=== PATIENT | male | born 1980 | race Caucasian/White ===

== ENCOUNTER 2017-10-02 13:00 | Outpatient (RCR) | payer MEDICAID, SELFPAY | END 2017-10-02 23:59 | LOC: PT.CARL 13:00 | PROVIDERS: Referring Provider Nurse Practitioner Family; Visit Provider Nurse Practitioner Family | DX: M54.41 Lumbago with sciatica, right side (principal); G89.29 Other chronic pain | CPT/HCPCS: 97010; 97012; 97014; 97035; 97110; 97162; G0283 ==

== ENCOUNTER 2017-10-24 13:00 | Outpatient (RCR) | payer MEDICAID, SELFPAY | END 2017-10-24 17:05 | disposition home or self-care (01) | LOC: PT 13:00 | PROVIDERS: Visit Provider Nurse Practitioner Family | DX: M54.41 Lumbago with sciatica, right side (principal); G89.29 Other chronic pain | CPT/HCPCS: 97010; 97012; 97014; 97035; 97110; G0283 ==

== ENCOUNTER → 2021-02-23 13:49 | Outpatient (CLI) | payer OTHER, SELFPAY ==
[2021-02-23 14:01] LABS: Basophils % 0.4 % (0.1-2.0); Eosinophils # 0.3 K/mm3 (0.0-0.4); Eosinophils % 5.9 % (0.1-12.0); Hematocrit 40.1 % (42.0-52.0); Hemoglobin 13.8 g/dL (14.1-18.0); Lymphocytes # 0.9 K/mm3 (0.7-4.5); Lymphocytes % 20.3 % (10-50); Mean Corpuscular HGB Conc 34.3 g/dL (31.8-35.4); Mean Corpuscular Volume 75.8 fl (80-94); Mean Platelet Volume 8.7 fl (7.4-10.4); Monocytes # 0.4 K/mm3 (0.1-1.0); Monocytes % 8.1 % (1.7-9.3); Neutrophils % 65.4 % (37.0-80.0); Platelet Count 207 K/mm3 (142-424); Red Cell Distribution Width 12.9 % (11.5-17.5); White Blood Count 4.5 K/mm3 (4.8-10.8)
[2021-02-23 14:06] LABS: Chloride 103 mmol/L (98-107); Potassium 4.3 mmoL/L (3.5-5.1); Sodium 138 mmol/L (136-145)
[2021-02-23 14:09] LABS: Alanine Aminotransferase 29 U/L (12-78); Albumin Level 4.3 g/dl (3.5-5.0); Albumin/Globulin Ratio 1.6 (1.1-1.8); Alkaline Phosphatase 109 U/L (38-126); Anion Gap 13.3 mEq/L (5-15); Aspartate Amino Transferase 38 U/L (17-59); Bilirubin,Total 0.7 mg/dl (0.2-1.3); Blood Urea Nitrogen 10 mg/dl (9-20); Calcium 9.1 mg/dl (8.4-10.2); Carbon Dioxide 26 mmol/L (22.0-30.0); Cholesterol 127 mg/dl (140-200); Estimated Glomerular Filt Rate 124 ml/min (>60); GFR (African American) 150 ML/MIN (>60); Globulin 2.7 g/dL (1.3-3.2); Glucose 127 mg/dl (74-100); Triglycerides 63 mg/dl (30-150); VLDL Cholesterol 13 mg/dL (0-40)
[2021-02-23 14:10] LABS: Chol/HDL Ratio 2.6 (1-3.5); HDL Cholesterol 48 mg/dl (40-60)
[2021-02-23 14:21] LABS: Direct LDL Cholesterol 62.98 mg/dL (100-129)
[2021-02-23 14:40] LABS: Thyroid Stimulating Hormone < 0.02 uIU/mL (0.465-4.68)
[2021-02-23 20:42] LABS: T4 (Thyroxine) 18.6 ug/dl (5.53-11.0)
[2021-03-04 07:12] LABS: Testosterone, Total, LC/MS 585.3 ng/dL (264.0-916.0); Testosterone,Free 4.5 pg/mL (6.8-21.5)
== END ==
PROVIDERS: Visit Provider Nurse Practitioner Family
DX: N63.20 Unspecified lump in the left breast, unspecified quadrant (principal)
CPT/HCPCS: 80053; 80061; 84402; 84403; 84436; 84443; 85025

== ENCOUNTER → 2021-03-03 09:28 | Outpatient (CLI) | payer OTHER, SELFPAY ==
--- NOTE | 2021-03-03 09:32 | MM_ITS ---
PROCEDURE: MM DIG MAMM BI DX W/CAD Digital Breast Tomosynthesis Included Right breast ultrasound complete with axilla CLINICAL INDICATION: RT BREAST LUMP Any a thumbs occur COMPARISON: US US BREAST RT COMPLETE from 03/14/2021 TECHNIQUE: Standard images obtained along with spot compression views and tomosynthesis and right breast ultrasound. FINDINGS: No discrete mass. No malignant appearing mass or malignant-appearing microcalcification.. Initially MLO images demonstrate significant deodorant artifact in the axilla. The patient return for additional images without deodorant.. There is diffuse bilateral gynecomastia right greater than left. Right breast ultrasound: No discrete mass. No cyst or other abnormalities apparent. IMPRESSION: Diffuse bilateral gynecomastia right greater than left. No discrete mass. BI-RAD Category: 2 Benign Finding FOLLOW-UP: Follow-up as clinically warranted. If there is indeed a palpable abnormality then it should be managed on a clinical basis despite negative mammogram and negative ultrasound. (A letter has been sent to the patient regarding results of the study.) Dictated by: Navin Monterroso MD 04/01/2021 11:15 Navin Monterroso MD in [place] 04/01/2021 11:15
== END ==
PROVIDERS: PCP Nurse Practitioner Family; Visit Provider Nurse Practitioner Family
DX: N63.10 Unspecified lump in the right breast, unspecified quadrant (principal)
CPT/HCPCS: 77062; 77066; G0279

== ENCOUNTER → 2021-03-14 11:20 | Outpatient (CLI) | payer OTHER, SELFPAY ==
--- NOTE | 2021-03-14 11:20 | US_ITS ---
PROCEDURE: US BREAST RT COMPLETE CLINICAL INDICATION: abn mamm Palpable nodule right breast COMPARISON: MG MM DIG MAMM BI DX W/CAD from 03/03/2021 FINDINGS: No discrete mass. No cyst or solid nodule apparent. There is gynecomastia. IMPRESSION: No discrete nodule. Gynecomastia Dictated by: Navin Monterroso MD 04/06/2021 08:57 Navin Monterroso MD in [place] 04/06/2021 08:57
== END ==
PROVIDERS: PCP Nurse Practitioner Family; Visit Provider Nurse Practitioner Family
DX: R92.8 Other abnormal and inconclusive findings on diagnostic imaging of breast (principal)
CPT/HCPCS: 76641

== ENCOUNTER → 2021-03-21 13:51 | Outpatient (CLI) | payer OTHER, SELFPAY ==
[2021-03-21 14:34] LABS: Thyroid Stimulating Hormone < 0.02 uIU/mL (0.465-4.68)
[2021-03-21 15:07] LABS: Free T4 (Free Thyroxine) 3.37 ng/dl (0.78-2.19)
[2021-03-23 09:13] LABS: Thyroid Peroxidase Antibodies <9 IU/mL (0-34); Triiodothyronine (T3) Free 12.8 pg/mL (2.0-4.4); Triiodothyronine (T3) Total 371 ng/dL (71-180)
[2021-03-26 20:54] LABS: Triiodothyronine (T3) Reverse 40.6 ng/dL (9.2-24.1)
== END ==
PROVIDERS: Visit Provider Nurse Practitioner Family
DX: R94.6 Abnormal results of thyroid function studies (principal)
CPT/HCPCS: 84439; 84443; 84480; 84481; 84482; 86376

== ENCOUNTER → 2021-03-31 11:00 | Outpatient (CLI) | payer SELFPAY | PROVIDERS: PCP Nurse Practitioner Family; Visit Provider Nurse Practitioner Family | DX: N63.10 Unspecified lump in the right breast, unspecified quadrant (principal) ==

== ENCOUNTER → 2021-04-01 11:20 | Outpatient (CLI) | payer OTHER, SELFPAY ==
[2021-04-01 12:22] LABS: Free T4 (Free Thyroxine) 2.76 ng/dl (0.78-2.19)
[2021-04-01 12:36] LABS: Thyroid Stimulating Hormone < 0.02 uIU/mL (0.465-4.68)
[2021-04-02 09:00] LABS: Thyroid Peroxidase Antibodies <9 IU/mL (0-34); Triiodothyronine (T3) Free 11.1 pg/mL (2.0-4.4)
[2021-04-05 23:45] LABS: Thyroid Stimulating Immunoglob 3.15 IU/L (0.00-0.55)
== END ==
PROVIDERS: Visit Provider Otolaryngology
DX: E06.9 Thyroiditis, unspecified (principal)
CPT/HCPCS: 36415; 84439; 84443; 84445; 84481; 86376

== ENCOUNTER → 2022-04-19 13:03 | Outpatient (CLI) | payer OTHER, SELFPAY ==
[2022-04-19 13:28] LABS: Basophils % 0.4 % (0.1-2.0); Eosinophils % 14.3 % (0.1-12.0); Hematocrit 40.6 % (42.0-52.0); Hemoglobin 14.2 g/dL (14.1-18.0); Lymphocytes # 1.8 K/mm3 (0.7-4.5); Lymphocytes % 25.8 % (10-50); Mean Corpuscular HGB Conc 34.9 g/dL (31.8-35.4); Mean Corpuscular Volume 77.3 fl (80-94); Mean Platelet Volume 7.4 fl (7.4-10.4); Monocytes # 0.4 K/mm3 (0.1-1.0); Monocytes % 5.8 % (1.7-9.3); Neutrophils # 3.7 K/mm3 (1.8-7.8); Neutrophils % 53.7 % (37.0-80.0); Platelet Count 219 K/mm3 (142-424); Red Blood Count 5.25 M/mm3 (4.60-6.20); Red Cell Distribution Width 12.4 % (11.5-17.5); White Blood Count 6.9 K/mm3 (4.8-10.8)
[2022-04-19 13:58] LABS: Alanine Aminotransferase 37 U/L (12-78); Albumin Level 4.2 g/dl (3.5-5.0); Alkaline Phosphatase 123 U/L (38-126); Anion Gap 11.1 mEq/L (5-15); Aspartate Amino Transferase 33 U/L (17-59); Bilirubin,Indirect 0.4 mg/dL (0.0-0.9); Bilirubin,Total 0.4 mg/dl (0.2-1.3); Bilirubin,Unconjugated 0.8 mg/dL (0.0-1.1); Blood Urea Nitrogen 14 mg/dl (9-20); Calcium 9.3 mg/dl (8.4-10.2); Carbon Dioxide 29 mmol/L (22.0-30.0); Chloride 102 mmol/L (98-107); Estimated Glomerular Filt Rate 106 ml/min (>60); GFR (African American) 128 ML/MIN (>60); Glucose 117 mg/dl (74-100); Potassium 4.1 mmoL/L (3.5-5.1); Sodium 138 mmol/L (136-145)
[2022-04-20 09:13] LABS: HIV Screen 4th Generation wRfx Non Reactive (Non Reactive)
[2022-04-22 23:19] LABS: Hep A Ab, IgM Negative; Hepatitis B Core Antibody IgM Negative; Hepatitis B Surface Antigen Negative; Hepatitis C Antibody >11.0
== END ==
LOC: LAB 13:04
PROVIDERS: Visit Provider Family Medicine Addiction Medicine
DX: F11.20 Opioid dependence, uncomplicated (principal); Z11.4 Encounter for screening for human immunodeficiency virus [HIV]
CPT/HCPCS: 36415; 80048; 80074; 80076; 85025; 86703; G0432

== ENCOUNTER 2024-06-30 13:05 | Outpatient (CLI) | payer BC, SELFPAY ==
--- NOTE | 2024-06-30 13:05 | MR_ITS ---
FINAL REPORT CLINICAL HISTORY: left sciatica left leg numbness FINDINGS: Multiplanar MR imaging of the lumbar spine was performed without contrast. On the sagittal T2-weighted images, abnormal decreased signal is seen at L5-S1. The vertebrae are of normal height. The vertebral alignment is normal. L1-2: There is no significant canal stenosis or neural foraminal narrowing. L2-3: There is no significant canal stenosis or neural foraminal narrowing. L3-4: There is no significant canal stenosis or neural foraminal narrowing. L4-5: Mild diffuse disc bulge is present. There is bilateral facet hypertrophy with mild bilateral neural foraminal narrowing. L5-S1: Mild diffuse disc bulge is present. There is bilateral facet hypertrophy with [id number]-eh-[id number] bilateral neural foraminal narrowing. IMPRESSION: Diffuse disc bulges with bilateral facet hypertrophy at L4-5 and L5-S1. Reviewed, Interpreted and Dictated by Andre Hernandez MD Transcribed by Jaycee Castro Authenticated and . [facility]
[2024-06-30 14:59] LABS: Albumin Level 4.5 g/dl (3.5-5.0); Chloride 102 mmol/L (98-107); Sodium 137 mmol/L (136-145)
[2024-06-30 15:00] LABS: Potassium 4.4 mmoL/L (3.5-5.1)
[2024-06-30 15:02] LABS: Alanine Aminotransferase 27 U/L (12-78); Albumin/Globulin Ratio 1.4 (1.1-1.8); Anion Gap 12.4 mEq/L (5-15); Aspartate Amino Transferase 40 U/L (17-59); Blood Urea Nitrogen 14 mg/dl (9-20); Carbon Dioxide 27 mmol/L (22.0-30.0); Estimated Glomerular Filt Rate 122 ml/min (>60); GFR (African American) 148 ML/MIN (>60); Globulin 3.2 g/dL (1.3-3.2); Total Protein,Serum 7.7 g/dl (6.3-8.2)
[2024-06-30 15:03] LABS: Alkaline Phosphatase 77 U/L (38-126); Bilirubin,Total 1.1 mg/dl (0.2-1.3); Calcium 9.4 mg/dl (8.4-10.2); Chol/HDL Ratio 3.5 (1-3.5); Cholesterol 208 mg/dl (140-200); Glucose 101 mg/dl (74-100); HDL Cholesterol 59 mg/dl (40-60); Triglycerides 69 mg/dl (30-150); VLDL Cholesterol 14 mg/dL (0-40)
[2024-06-30 15:14] LABS: Direct LDL Cholesterol 111.86 mg/dL (100-129)
[2024-06-30 15:32] LABS: Thyroid Stimulating Hormone 0.19 uIU/mL (0.465-4.68)
== END 2024-06-30 23:59 | disposition home or self-care (01) ==
LOC: RAD 13:05
PROVIDERS: PCP Family Medicine; Visit Provider Family Medicine
DX: M51.26 Other intervertebral disc displacement, lumbar region (principal); M25.552 Pain in left hip; Z82.49 Family history of ischemic heart disease and other diseases of the circulatory system
CPT/HCPCS: 36415; 72148; 80053; 80061; 84443

== ENCOUNTER 2024-07-01 14:06 | Outpatient (CLI) | payer BC, SELFPAY ==
[2024-07-01 14:38] LABS: Basophils # 0.1 K/mm3 (0-0.2); Basophils % 0.8 % (0.1-2.0); Eosinophils # 0.7 K/mm3 (0.0-0.4); Eosinophils % 10.2 % (0.1-12.0); Hematocrit 42.9 % (42.0-52.0); Hemoglobin 14.7 g/dL (14.1-18.0); Lymphocytes # 1.5 K/mm3 (0.7-4.5); Lymphocytes % 22.8 % (10-50); Mean Corpuscular HGB Conc 34.3 g/dL (31.8-35.4); Mean Corpuscular Hemoglobin 29.6 pg (27.0-31.2); Mean Corpuscular Volume 86.3 fl (80-94); Mean Platelet Volume 7.8 fl (7.4-10.4); Monocytes # 0.3 K/mm3 (0.1-1.0); Neutrophils # 3.9 K/mm3 (1.8-7.8); Neutrophils % 61.3 % (37.0-80.0); Platelet Count 185 K/mm3 (142-424); Red Blood Count 4.97 M/mm3 (4.60-6.20); Red Cell Distribution Width 13.7 % (11.5-17.5); White Blood Count 6.4 K/mm3 (4.8-10.8)
[2024-07-01 15:24] LABS: T4 (Thyroxine) 10.5 ug/dl (5.53-11.0)
== END 2024-07-01 23:59 | disposition home or self-care (01) ==
LOC: LAB 14:07
PROVIDERS: PCP Family Medicine; Visit Provider Family Medicine
DX: M51.26 Other intervertebral disc displacement, lumbar region (principal); M25.552 Pain in left hip; Z82.49 Family history of ischemic heart disease and other diseases of the circulatory system; R79.89 Other specified abnormal findings of blood chemistry
CPT/HCPCS: 36415; 84436; 85025

== ENCOUNTER 2025-05-11 12:53 | Outpatient (POV) | payer BC, SELFPAY ==
--- OUTSIDE RECORDS SUMMARY | 2025-05-11 12:56 | XMS_ITS | Clinical Summary ---
Author Organization [facility] Address [address] [place] [address] Care Team Providers Care Logistics Vice President Name Role Phone Abraham Cassy Longo APRN Primary Care Provider [phone] Allergies No known active allergies Medications diclofenac (VOLTAREN) 50 MG EC tablet Take 50 mg by mouth 3 (Three) Times a Day As Needed. Active Active Problems Problem Noted Date Diagnosed Date HNP (herniated nucleus pulposus), lumbar 018 Overview (11/23/2017): Added automatically from request for surgery [id number] Family History Medical History Relation Name Comments No Known Problems Neg Hx Social History Tobacco Use Types Packs/Day Years Used Date Smoking Tobacco: Former Smokeless Tobacco: Former Chew Quit: 2016 Alcohol Use Standard Drinks/Week Comments Yes 0 (1 standard drink = 0.6 oz pur e alcohol) rarely Abuse Screen Answer Date Recorded Unsafe at Home or Work/School Not on file Feels Threatened by Someone? Not on file 08/2023 Does Anyone Keep You from Co ntacting Others or Doint Things Outside the Home? Not on file 07/11/2023 Physical Sign of Abuse Present Not on file 1 Housing Stability Answer Date Recorded Current Living Arrangements Not on file 07/01 Potentially Unsafe Housing Conditions Not on madhav e 07/11/2023 Family and Community Support Answer Lewis e Recorded Help with Day-to-Day Activities Not on file 07/11/2023 Lonely or Isolated Not on file 07/11/2023 Employment Answer Date Recorded Do you want help finding or keeping work or a misbah b? Not on file 07/11/2023 Disabilities Answer Date Recorded Concentrating, Remembering, or Making Decisions Difficulty Not on file 07/11/2023 Doing Errands Independently Difficulty Not on fi le 07/11/2023 Education Answer Date Recorded Help with school or training? Not on file Preferred Language Not on file 07/11/2023 Sex and Gender Information Value Date Recorded Sex Assigned at Not on file Legal Sex Male 12:57 PM EST Gender Identity Not on file Sexual Orientation Not on file Last Filed Vital Signs Vital Sign Reading Time Taken Comments Blood Pressure 108/56 12/21/2017 9:24 AM EDT Pulse 82 11/29/2017 1:15 PM EST Temperature 36.4 C (97.5 F) 12/21/2017 9:24 AM EDT Respiratory Rate 18 11/29/2017 1:15 PM EST Oxygen Saturation 98% 11/29/2017 1:15 PM EST Inhaled Oxygen Concentration - - Weight 94.8 kg (209 lb) 12/21/2017 9:24 AM EDT Height 190.5 cm (6' 3 ) 12/21/2017 9:24 AM EDT Body Mass Index 26.12 12/21/2017 9:24 AM EDT Plan of Treatment Health Maintenance Due Date Last Done Comments TDAP/TD VACCINES (1 - Tdap) 1997 ANNUAL PHYSICAL 11/22/2017 HEPATITIS C SCREENING 11/22/2017 COLOGUARD 2023 COLON CANCER SCREENING 5 YEA R SIGMOIDOSCOPY 2023 COLONOSCOPY 2023 COLORECTAL CANCER SCREENING 2023 CT COLONOGRAPHY 2023 FECAL OCCULT BLOOD TEST 2023 FIT Testing (1 year) 2023 COVID-19 Vaccine (1 - 2023-2 5 season) 2024 INFLUENZA VACCINE 07/01/2025 Pneumococcal Vaccine 0-49 Aged Out No longer eligible based on patient's age to complete this topic Insurance Care Teams Logistics Vice President Relationship Specialty Start Date End Date Cassy Rosario APRN PCP - General Nurse Practitioner 11/19/17
[2025-05-11 13:13] VITALS: BP 118/69; PULSE 80; RESP 18; O2SAT 97; BMI 29.3
--- NOTE | 2025-05-11 13:36 | EXP.PAIN.OV ---
HPI Data of Consult Patient: new to practice Consult date: 05/11/25 Requesting Physician: Sara Marks APRN Primary Care Provider: Sumanth Solorzano MD Reason for consult: Low back pain, left thigh pain History of present illness: Mr. Reyes is a 44 year old male who presents today as a new patient. He is a referral from Dr. Solorzano's office. Patient states he has had longstanding low back pain for years and that he ended up having a discectomy in [address] Duval and did great for about a year. Patient states since then the pain has come and gone but the last 6 months it is progressively worsened. He states it is all along his low back along the left side and goes into his hip and left upper thigh. Patient states it is a numbness with occasional sharp stabbing sensations and that it is worse with prolonged sitting or laying down. Patient does state the pain is interfering with his ability perform activities of daily living such as cooking and cleaning. Patient has tried jyus-rdw-xkrembh medications along with heat and ice and topicals with minimal relief. Patient has had physical therapy in the past but denies any recent. He does state he has been seeing chiropractor on a regular basis and still doing that at home stretching and exercise daily that was physician guided and this does seem to at least help in the moment. Patient denies any prior history of injections or other back surgery. He states he has been getting IM steroid injections from his primary care and that they do help. Patient does use oljv-rbk-lxchymb ibuprofen his Moe has been reviewed and is appropriate. Pain at rest (0-10 scale): 5 Has patient had previous pain injection?: No Conservative treatment options previously tried: NSAIDS (Longer than 12 weeks), Home exercise plan (Longer than 12 weeks), Physical Therapy (Past) and Chiropractor (Ongoing) cc:: CC: Sara Marks APRN [facility] Disclaimer: The information contained in this section may have been updated after the patient was seen, as this information can be updated by other users. Medical History History of hepatitis C Surgical History Previous back surgery Family History (Updated 05/11/25 @ 13:19 by Genevieve Aparicio RN) Other Unknown family medical history Social History (Updated 05/11/25 @ 13:20 by Genevieve Aparicio RN) Smoking Status: Former smoker tobacco type: smokeless tobacco alcohol intake: never substance use type: former substance user current occupational status: employed Travel in the last 8 weeks?: None Review of Systems Review of Systems Review of systems:: pertinent systems reviewed and negative unless documented below Review of systems (narrative): Review of Systems: General: No recent weight changes, no fever, no sleep disturbances Respiratory: No cough, no shortness of air, no recurring pulmonary infections Cardiovascular/peripheral vascular: No chest pain, no palpitations, no edema, no shortness of breath Gastrointestinal: No new onset incontinence, normal bowel movements reported Genitourinary: No new onset incontinence Musculoskeletal: Low back pain left side, left hip pain Psychiatric: [Normal mood/affect] Neurological: [Denies weakness in extremities], [denies balance issues] Meds Home Medications and Allergies Home Medications ?Medication ?Instructions ?Recorded ?Confirmed ?Type buprenorphine 100 mg/0.5 mL 100 mg SQ DIRECTED 06/03/24 05/11/25 History solution,exten.rel.subcutaneous syringe (Sublocade) triamcinolone acetonide 0.1 % 1 applic topical BID dermatitis 12/23/24 05/11/25 Rx topical cream #30 grams tadalafil 10 mg tablet See Rx Instructions .Route 03/12/25 05/11/25 Rx .COMPLEX #30 tabs tamsulosin 0.4 mg capsule See Rx Instructions .Route 03/12/25 05/11/25 Rx .COMPLEX #30 caps albuterol sulfate 90 mcg/actuation 1 inh inhalation DIRECTED 04/17/25 05/11/25 History aerosol inhaler Breathing Problems fluticasone propionate 50 2 spray intranasal DAILY #16 grams 04/17/25 05/11/25 Rx mcg/actuation nasal spray,suspension New Prescriptions to Start Prescriptions: Allergies Allergy/AdvReac Type Severity Reaction Status Date / Time pravastatin Allergy Intermediate MYALGIA Verified 04/17/25 11:44 Objective Vital signs: Pulse Resp BP Pulse Ox O2 Del Method 80 18 118/69 97 Room Air 05/11/25 13:13 05/11/25 13:13 05/11/25 13:13 05/11/25 13:13 05/11/25 13:13 Narrative: Physical Exam: General: Alert and oriented x3, no acute distress, pleasant and cooperative Lungs: Respirations even and unlabored, symmetrical chest expansion Eyes: PERRL Musculoskeletal: Flexion and extension of lumbar [spine] somewhat guarded secondary to pain, [antalgic gait noted] point tenderness along left SI with positive left Lizeth's, Riky's, Gaenslen's, compression and distraction exam Neurological: Speech clear, no gross sensory deficit Assessment and Plan *Assessment and plan (1) Sacroiliitis: Status: Acute Category: Medical Code(s): M46.1 - Sacroiliitis, not elsewhere classified (2) Left hip pain: Status: Acute Category: Medical Code(s): M25.552 - Pain in left hip Plan Patient is experiencing worsening pain along the low back and left hip. They did have limited range of motion of the lumbar spine along with point tenderness along left SI joints and a positive bilateral Lizeth's, Riky's, Gaenslen's, compression and distraction exam. I did discuss with the patient that I do believe they would benefit from left SI injections. Risk and benefits were discussed with the patient and they would like to proceed forward with this option. Patient has tried and failed conservative therapy. Patient has been actively doing conservative treatment including oral medication, heat and ice, topicals, past physical therapy, recent chiropractor therapy and continued at home exercising and stretching for longer than 12 weeks that was physician guided. Patient is having to adjust their activity based off the increased pain resulting in activity modification. I do believe the patient would benefit from SI injection. If the patient does get significant relief following these injections we will see in the future if they would benefit from a second set with the possibility of SI fusion at a later date. This will be a diagnostic injection with less than 1 mL solution to be injected. Patient will be scheduled for left SI injections under fluoroscopy. I will also order the patient a compounded cream. Patient has been instructed to contact the clinic with any concerns before the next appointment. Dr. Mendoza has reviewed this note and agrees with this plan of care. This note was dictated using voice recognition software and make contain errors or omissions. All injections are used with Lidocaine or Bupivacaine and dexamethasone unless diagnostic in which no steroids were injected.
== END 2025-05-11 23:59 | disposition home or self-care (01) ==
LOC: SC.PAIN 12:54
PROVIDERS: PCP Family Medicine; Visit Provider Nurse Practitioner Family
DX: M46.1 Sacroiliitis, not elsewhere classified (principal); M25.552 Pain in left hip
CPT/HCPCS: 99202; G0463

== ENCOUNTER 2025-06-23 13:26 | Day surgery (SDC) | payer BC, SELFPAY ==
[2025-06-23 13:40] VITALS: BP 116/56; PULSE 84; RESP 16; O2SAT 97; BMI 28.7
[2025-06-23] MEDS: LIDOCAINE 1% 5ML PF VIAL 5 ML (13:53)
[2025-06-23] MEDS: BUPIVACAINE 0.25% 10ML INJ 25 MG IJ (13:53)
[2025-06-23 13:55] VITALS: BP 116/71; PULSE 84; RESP 16; O2SAT 97
[2025-06-23 14:08] VITALS: BP 119/70; PULSE 78; RESP 18; O2SAT 99
[2025-06-23 14:09] VITALS: BP 119/70; PULSE 78; RESP 18; O2SAT 99
--- NOTE | 2025-06-23 14:25 | EXP.PAIN.PRO ---
Procedure Date: 06/23/25 Time: 13:35 Anesthesiologist:: Richar Curran CRNA Complications:: None Pre-procedure Diagnosis:: Left sacroiliitis Post-procedure Diagnosis:: Same Indications for Procedure:: Patient is a very pleasant 44-year-old male who comes our clinic today for a diagnostic left sacroiliac joint injection of local anesthetic. Patient describes left low lumbar back pain as well as left posterior hip pain as constant, dull, aching. He reports difficulty transitioning from sitting to standing. He rates his pain 7/10. Procedure Details:: Procedure: Left sacroiliac injection under fluoroscopy Informed consent was obtained and the risk and benefits of the procedure were explained to the patient.~ The patient was taken to the procedure room and noninvasive monitors were placed including noninvasive blood pressure cuff and pulse oximeter.~ The patient was placed prone on the procedure table.~ The~ left hip was cleansed using Betadine as a cleansing solution.~ C-arm fluorosocpy was used to view the left SI joint.~ The skin and subcutaneous tissues were anesthetized using Lidocaine 1.5% and a 25-gauge needle.~ After this, a 22-gauge spinal needle was inserted under fluoroscopic guidance into the inferior aspect of the left SI joint.~ Omnipaque dye was injected and a good spread was seen throughout the joint.~ After this, approximately 5 mL of bupivacaine 0.25% was incrementally injected into the sacroiliac joint.~ The patient tolerated the procedure well with no complications.~ The patient was observed in the Pain Clinic for a period of 30-45 minutes, then discharged home neurologically intact.~ Plan and Disposition:: Patient was discharged without incident.
== END 2025-06-23 13:55 | disposition home or self-care (01) ==
PROVIDERS: PCP Family Medicine; Visit Provider Nurse Anesthetist, Certified Registered
DX: M46.1 Sacroiliitis, not elsewhere classified (principal); N40.0 Benign prostatic hyperplasia without lower urinary tract symptoms; Z88.8 Allergy status to other drugs, medicaments and biological substances; Z79.899 Other long term (current) drug therapy
CPT/HCPCS: 64450; J0665; J2003

== ENCOUNTER 2025-09-08 12:44 | Day surgery (SDC) | payer BC, SELFPAY ==
[2025-09-08 12:48] VITALS: BP 119/70; PULSE 73; RESP 18; O2SAT 99; BMI 28.7
[2025-09-08] MEDS: DEXAMETHASONE 10MG/ML 1ML VIAL 10 MG (12:54)
[2025-09-08] MEDS: BUPIVACAINE 0.25% 10ML INJ 25 MG IJ (12:54)
[2025-09-08] MEDS: LIDOCAINE 1% 5ML PF VIAL 5 ML (12:57)
--- NOTE | 2025-09-08 12:57 | EXP.PAIN.PRO ---
Procedure Date: 09/08/25 Time: 13:00 Anesthesiologist:: Richar Curran CRNA Complications:: None Pre-procedure Diagnosis:: Left sacroiliitis Post-procedure Diagnosis:: Same Indications for Procedure:: Patient is a very pleasant 45-year-old male who comes our clinic today for a left sacroiliac joint injection of cortisone local anesthetic. Patient describes low lumbar back pain off the midline to the left. Left posterior hip pain. Difficulty transitioning from sitting to standing. Difficulty with ambulation due to left posterior hip pain. He rates pain 7/10. Procedure Details:: Procedure: Left sacroiliac injection under fluoroscopy Informed consent was obtained and the risk and benefits of the procedure were explained to the patient.~ The patient was taken to the procedure room and noninvasive monitors were placed including noninvasive blood pressure cuff and pulse oximeter.~ The patient was placed prone on the procedure table.~ The~ left hip was cleansed using Betadine as a cleansing solution.~ C-arm fluorosocpy was used to view the left SI joint.~ The skin and subcutaneous tissues were anesthetized using Lidocaine 1.5% and a 25-gauge needle.~ After this, a 22-gauge spinal needle was inserted under fluoroscopic guidance into the inferior aspect of the left SI joint.~ Omnipaque dye was injected and a good spread was seen throughout the joint.~ After this, approximately 5 mL of bupivacaine 0.25% and dexamethasone 10 mg was incrementally injected into the sacroiliac joint.~ The patient tolerated the procedure well with no complications.~ The patient was observed in the Pain Clinic for a period of 30-45 minutes, then discharged home neurologically intact.~ Plan and Disposition:: Patient was discharged without incident.
[2025-09-08 12:58] VITALS: BP 128/69; BP 130/64; PULSE 82; PULSE 86; RESP 16; RESP 18; O2SAT 96; O2SAT 97
[2025-09-08 13:00] VITALS: BP 130/64; PULSE 86; RESP 18; O2SAT 97
== END 2025-09-08 12:58 | disposition home or self-care (01) ==
PROVIDERS: PCP Family Medicine; Visit Provider Nurse Anesthetist, Certified Registered
DX: M46.1 Sacroiliitis, not elsewhere classified (principal); F17.290 Nicotine dependence, other tobacco product, uncomplicated
CPT/HCPCS: 64450; 77002; G0260; J0665; J1100; J2003